=== PATIENT | male | born 1950 | race Caucasian/White ===

== ENCOUNTER 2017-06-05 06:49 | Day surgery (SDC) | payer BC ==
[2017-05-14 08:30] VITALS: BMI 37.0
[~2017-06-05] VITALS: Ht 180.3 cm; Wt 120.0 kg
[~2017-06-05 06:49] MED LIST: ASPI81TA28 PO; BNC40 PO; BTH25 PO; CHOL1000 PO; CHRO1CAP3 PO; CLA PO; CYAN100020 PO; CYM/30 PO; Dilaudid Pain Pump; ENBREL SQ; GLC/500 PO; LACTATED RINGER'S 1000ML 1,000 ML IV SCH; LRS10 PO; LVMI SQ; MAGN400T6 PO; METO25TA3 PO; OMEG12006 PO; OXYC15TA89 PO; OXYSR/20 PO; PROC10TA PO
[2017-06-05] MEDS ORDERED: FENTANYL CITRATE INJ 50 MCG/1 ML 2 ML VIAL ONE (06:51)
[2017-06-05] MEDS ORDERED: MIDAZOLAM HCL 1 MG/ML 2ML VIAL ONE (06:51)
[2017-06-05 07:11] VITALS: BP 148/83; PULSE 65; TEMP 36.9; O2SAT 94; Ht 180.3 cm; Wt 120.0 kg
[2017-06-05] MEDS ORDERED: LABETALOL HCL IV 5 MG/ML 20ML IV PRN (07:15)
[2017-06-05] MEDS ORDERED: FENTANYL CITRATE INJ 50 MCG/1 ML 2 ML VIAL IV PRN (07:15)
[2017-06-05] MEDS ORDERED: ATROPINE SULFATE 0.1 MG/ML 5ML SYR IV PRN (07:15)
[2017-06-05] MEDS ORDERED: ONDANSETRON INJ 2 MG/ML 2 ML VIAL IV PRN (07:15)
[2017-06-05] MEDS ORDERED: SODIUM CHLORIDE 0.9% 500ML 500 ML IV ONE (08:01)
--- NOTE | 2017-06-05 08:01 | Endo History and Physical ---
History & Physical Date of Service: Jun 05, 2017. Chief Complaint: abnormal pancreas on imaging Referring Physician: History of Present Illness abnormal pancreas on imaging Past Surgical History Hx Cardiac Surgery: Yes (CARDIAC CATH NO STENTS) Hx Abdominal Surgery: Yes (HERNIA REPAIR) Hx Cancer Surgery: No Hx Thoracic Surgery: No Hx Orthopedic: Yes (LEFT ANKLE REPAIR, B/L TKA, MULTIPLE NECK AND LUMBAR FUSION ) Hx Urinary Tract Surgery: No Social History Smoking Status: Former Smoker Hx Substance Use: No Hx Alcohol Use: No Allergies Coded Allergies: Adhesives (Verified Adverse Reaction, Severe, SKIN TEARS, 06/05/17) No Known Allergies (Verified , NONE, 06/05/17) Current Medications Reported Home Medications Medications Dose Route/Sig Max Daily Dose Days Date Category [Enbrel] 15 Mg SQ WK 05/14/17 Reported Baclofen 10 Mg Tab 10 Mg PO QID 05/14/17 Reported Aspirin Ec (Aspirin) 81 Mg Tab 81 Mg PO DAILY 05/14/17 Reported Bethanechol Chloride (Bethanechol Chl) 25 Mg Tab 25 Mg PO TID 05/14/17 Reported Cymbalta (Duloxetine HCl) 30 Mg Cap 1 Cap PO DAILY 30 05/14/17 Reported Levemir (Insulin Detemir) 100 Units/Ml Inj 18 Unit SQ QPM 05/14/17 Reported Glucophage (Metformin Hcl) 500 Mg Tab 1,000 Mg PO QAM 05/14/17 Reported Benicar (Olmesartan Medoxomil) 40 Mg Tab 40 Mg PO QAM 05/14/17 Reported Compazine (Prochlorperazine Maleate) 10 Mg Tab 10 Mg PO Q6H PRN 05/14/17 Reported Mag-Ox (Magnesium Oxide) 400 Mg Tab 400 Mg PO QAM 05/14/17 Reported [Cla] 1 Tab PO QAM 05/14/17 Reported Oxycontin (Oxycodone Hcl) 15 Mg Tab 15 Mg PO 5XDAILY 05/14/17 Reported Oxycontin (Oxycodone HCl) 20 Mg Tabcr 20 Mg PO QID 05/14/17 Reported Vitamin B12 (Cyanocobalamin) 1,000 Mcg Tab 1 Tab PO QAM 05/14/17 Reported [place] 3 ([place]-3 Fatty Acids) 1 Cap Cap 1 Cap PO QAM 05/14/17 Reported Vitamin D3 (Cholecalciferol) 1,000 Unit Tab 5,000 Unit PO DAILY 90 05/14/17 Reported [Dilaudid Pain Pump] 6 Mg DAILY 07/09/10 Reported Toprol-Xl (Metoprolol Succinate) 25 Mg Tabcr 25 Mg PO DAILY 10/03/08 Reported Vital Signs Weight (Kilograms): 120.00 Height (Feet): 5 Height (Inches): 11 Date Time Temp Pulse Resp B/P (MAP) Pulse Ox O2 Delivery O2 Flow Rate FiO2 06/05/17 07:11 36.9 65 20 148/83 (104) 94 Room Air Physical Exam Respiratory/Chest: Auscultation: breath sounds normal Cardiovascular: Heart Auscultation: RRR Abdomen: Bowel Sounds: normal Inspection & Palpation: soft, non-distended, no tenderness, guarding & rebound AAO x3 Nl s1s2 Lungs CTA Abd soft / obese/non tender - CCE Pt with discomfort in neck (hx spinal stenosis) Assessment and Plan EGD/EUS possible FNA Risk discussed with pt including bleeding infection perforation, 5% risk of pancreatitis and risk of bleeding pt/spouse agreeable to proceed
[2017-06-05] MEDS ORDERED: LIDOCAINE HCL 2% 2 ML VIAL (20MG/ML) ONE (09:05)
[2017-06-05] MEDS ORDERED: METOCLOPRAMIDE HCL INJ 5 MG/ML 2 ML VIAL ONE (09:06)
[2017-06-05] MEDS ORDERED: ONDANSETRON INJ 2 MG/ML 2 ML VIAL ONE (09:06)
[2017-06-05] MEDS ORDERED: ROCURONIUM BROMIDE 10 MG/ML 5 ML VIAL IV ONE (09:06)
[2017-06-05] MEDS ORDERED: PROPOFOL IV EMULSION 10 MG/ML 20 ML VIAL IV ONE (09:06)
[2017-06-05] MEDS ORDERED: CIPROFLOXACIN 400MG / 200ML D5W ONE (09:07)
--- NOTE | 2017-06-05 09:53 | Discharge Instructions ---
Endoscopy Patient Instructions Date / Procedure(s) Performed Jun 05, 2017. EGD, Other Allergy Information Coded Allergies: Adhesives (Verified Adverse Reaction, Severe, SKIN TEARS, 06/05/17) No Known Allergies (Verified , NONE, 06/05/17) Discharge Date / Findings Jun 05, 2017. panc lesion - FNA performed Normal EGD no varices Medication Instructions Restart Stopped Medication(s): Reported Home Medications Medications Dose Route/Sig Max Daily Dose Days Date Category [Enbrel] 15 Mg SQ WK 05/14/17 Reported Baclofen 10 Mg Tab 10 Mg PO QID 05/14/17 Reported Aspirin Ec (Aspirin) 81 Mg Tab 81 Mg PO DAILY 05/14/17 Reported Bethanechol Chloride (Bethanechol Chl) 25 Mg Tab 25 Mg PO TID 05/14/17 Reported Cymbalta (Duloxetine HCl) 30 Mg Cap 1 Cap PO DAILY 30 05/14/17 Reported Levemir (Insulin Detemir) 100 Units/Ml Inj 18 Unit SQ QPM 05/14/17 Reported Glucophage (Metformin Hcl) 500 Mg Tab 1,000 Mg PO QAM 05/14/17 Reported Benicar (Olmesartan Medoxomil) 40 Mg Tab 40 Mg PO QAM 05/14/17 Reported Compazine (Prochlorperazine Maleate) 10 Mg Tab 10 Mg PO Q6H PRN 05/14/17 Reported Mag-Ox (Magnesium Oxide) 400 Mg Tab 400 Mg PO QAM 05/14/17 Reported [Cla] 1 Tab PO QAM 05/14/17 Reported Oxycontin (Oxycodone Hcl) 15 Mg Tab 15 Mg PO 5XDAILY 05/14/17 Reported Oxycontin (Oxycodone HCl) 20 Mg Tabcr 20 Mg PO QID 05/14/17 Reported Vitamin B12 (Cyanocobalamin) 1,000 Mcg Tab 1 Tab PO QAM 05/14/17 Reported [place] 3 ([place]-3 Fatty Acids) 1 Cap Cap 1 Cap PO QAM 05/14/17 Reported Vitamin D3 (Cholecalciferol) 1,000 Unit Tab 5,000 Unit PO DAILY 90 05/14/17 Reported [Dilaudid Pain Pump] 6 Mg DAILY 07/09/10 Reported Toprol-Xl (Metoprolol Succinate) 25 Mg Tabcr 25 Mg PO DAILY 10/03/08 Reported Reported Home Medications Medications Dose Route/Sig Max Daily Dose Days Date Category [Enbrel] 15 Mg SQ WK 05/14/17 Reported Baclofen 10 Mg Tab 10 Mg PO QID 05/14/17 Reported Aspirin Ec (Aspirin) 81 Mg Tab 81 Mg PO DAILY 05/14/17 Reported Bethanechol Chloride (Bethanechol Chl) 25 Mg Tab 25 Mg PO TID 05/14/17 Reported Cymbalta (Duloxetine HCl) 30 Mg Cap 1 Cap PO DAILY 30 05/14/17 Reported Levemir (Insulin Detemir) 100 Units/Ml Inj 18 Unit SQ QPM 05/14/17 Reported Glucophage (Metformin Hcl) 500 Mg Tab 1,000 Mg PO QAM 05/14/17 Reported Benicar (Olmesartan Medoxomil) 40 Mg Tab 40 Mg PO QAM 05/14/17 Reported Compazine (Prochlorperazine Maleate) 10 Mg Tab 10 Mg PO Q6H PRN 05/14/17 Reported Mag-Ox (Magnesium Oxide) 400 Mg Tab 400 Mg PO QAM 05/14/17 Reported [Cla] 1 Tab PO QAM 05/14/17 Reported Oxycontin (Oxycodone Hcl) 15 Mg Tab 15 Mg PO 5XDAILY 05/14/17 Reported Oxycontin (Oxycodone HCl) 20 Mg Tabcr 20 Mg PO QID 05/14/17 Reported Vitamin B12 (Cyanocobalamin) 1,000 Mcg Tab 1 Tab PO QAM 05/14/17 Reported [place] 3 ([place]-3 Fatty Acids) 1 Cap Cap 1 Cap PO QAM 05/14/17 Reported Vitamin D3 (Cholecalciferol) 1,000 Unit Tab 5,000 Unit PO DAILY 90 05/14/17 Reported [Dilaudid Pain Pump] 6 Mg DAILY 07/09/10 Reported Toprol-Xl (Metoprolol Succinate) 25 Mg Tabcr 25 Mg PO DAILY 10/03/08 Reported Provider Instructions Activity Restrictions - No exercising or heavy lifting for 24 hours. - Do not drink alcohol the day of the procedure. - Do not drive a car or operate machinery until the day after the procedure. - Do not make any important decisions or sign important papers in 24 hours after the procedure. Following Day: - Return to full activity which may include returning to work/school. Diet Start your diet with liquids and light foods (jello, soup, juice, toast). Then eat your usual diet if not nauseated. Treatment For Common After Affects For mild abdominal pain, bloating, or excessive gas: - Rest - Eat lightly - Lie on right side Follow-Up Information Follow-up with as scheduled Anesthesia Information What You Should Know You have had a procedure that required some medicine to reduce anxiety and discomfort. This treatment is called moderate sedation. After receiving the treatment, you may be sleepy, but you will be able to breathe on your own. The effects of the treatment may last for several hours. Follow these instructions along with Activity/Diet recommendations noted above: * Do NOT do anything where dizziness or clumsiness would be dangerous. * Rest quietly at home today, then you can be up and about tomorrow. * Have a responsible person stay with you the rest of today. * You may have had an I.V. today. If so, you may take the dressing off later today. Recommendations Call your doctor if: * Trouble breathing * Continuous vomiting for more than 24 hours * Temperature above 101 degrees * Severe abdominal pain or bloating * Pain not relieved by pain medicine ordered * There is increased drainage or redness from any incision * A large amount of rectal bleeding greater than 2-3 tablespoons. (If you had a polyp/s removed or have hemorrhoids, a small amount of blood - from the rectum is to be expected.) * You have any unanswered questions or concerns. IN THE EVENT OF A SERIOUS EMERGENCY, GO TO THE NEAREST EMERGENCY ROOM Your discharge instructions were prepared by provider Michael Valdes. Patient Instructions Signature Page Daniel Leblanc Patient (or Guardian) Signature/Date: I have read and understand the instructions given to me by my caregivers. Caregiver/RN/Doctor Signature/Date: The above-named patient and/or guardian has received patient instructions on this date. + Original Patient Signature Page (only) stays with chart. Please make copy for patient.
--- NOTE | 2017-06-05 10:36 | Anesthesiology Progress Note ---
Anesthesia Post Op Note Date & Time Jun 05, 2017 at 10:36 Vital Signs Pain Intensity: 0 Vital Signs Past 12 Hours Date Time Temp Pulse Resp B/P (MAP) Pulse Ox O2 Delivery O2 Flow Rate FiO2 06/05/17 10:35 36.2 71 16 150/76 96 Room Air 06/05/17 10:25 64 16 147/83 96 Room Air 06/05/17 10:15 69 16 153/75 100 Oxymask 3 06/05/17 10:05 62 16 152/78 100 Oxymask 5 06/05/17 09:59 36.0 66 16 160/80 99 Oxymask 5 06/05/17 07:11 36.9 65 20 148/83 (104) 94 Room Air Notes Mental Status: alert / awake / arousable, participated in evaluation Pt Amnestic to Procedure: Yes Nausea / Vomiting: adequately controlled Pain: adequately controlled Airway Patency, RR, SpO2: stable & adequate BP & HR: stable & adequate Hydration State: stable & adequate Anesthetic Complications: no major complications apparent
--- NOTE | 2017-06-05 10:38 | GI REPORT ---
Procedure Date: 06/05/2017 8:19 AM Procedure: Upper GI endoscopy Indications: Portal hypertension rule out esophageal varices, Esophageal varices, Follow-up of esophageal varices Medicines: Propofol per Anesthesia Complications: No immediate complications. Estimated blood loss: None. Estimated Blood Loss: Estimated blood loss: none. Estimated blood loss: none. Procedure: Pre-Anesthesia Assessment: - Prior to the procedure, a History and Physical was performed, and patient medications and allergies were reviewed. The patient's tolerance of previous anesthesia was also reviewed. The risks and benefits of the procedure and the sedation options and risks were discussed with the patient. All questions were answered, and informed consent was obtained. Prior Anticoagulants: The patient has taken no previous anticoagulant or antiplatelet agents. ASA Grade Assessment: II - A patient with mild systemic disease. After reviewing the risks and benefits, the patient was deemed in satisfactory condition to undergo the procedure. After obtaining informed consent, the endoscope was passed under direct vision. Throughout the procedure, the patient's blood pressure, pulse, and oxygen saturations were monitored continuously. The Scope was introduced through the mouth, and advanced to the second part of duodenum. The upper GI endoscopy was accomplished without difficulty. The patient tolerated the procedure well. Findings: The examined esophagus was normal. The Z-line was regular and was found 45 cm from the incisors. The entire examined stomach was normal. The examined duodenum was normal. The cardia and gastric fundus were normal on retroflexion. Retained gastric contents are not identified on this exam. Impression: - Normal esophagus. - Z-line regular, 45 cm from the incisors. - Normal stomach. - Normal examined duodenum. - No specimens collected. Recommendation: - Perform an upper endoscopic ultrasound (UEUS) today. MD Michael Fuchs MD 06/05/2017 10:37:58 AM This report has been signed electronically. Note Initiated On: 06/05/2017 8:19 AM I attest to the content of the Intraoperative Record and orders documented therein, exceptions below
[2017-06-05 10:40] VITALS: BP 139/81; PULSE 65; TEMP 36.6; O2SAT 95
[2017-06-05 11:10] VITALS: BP 147/78; PULSE 66; TEMP 36.7; O2SAT 96
--- NOTE | 2017-06-05 13:33 | GI REPORT ---
Procedure Date: 06/05/2017 8:05 AM Procedure: Upper EUS Indications: Suspected mass in pancreas on CT scan Medicines: General Anesthesia, Cipro 400 mg IV Complications: No immediate complications. Estimated blood loss: Minimal. Estimated Blood Loss: Estimated blood loss was minimal. Procedure: Pre-Anesthesia Assessment: - Prior to the procedure, a History and Physical was performed, and patient medications and allergies were reviewed. The patient's tolerance of previous anesthesia was also reviewed. The risks and benefits of the procedure and the sedation options and risks were discussed with the patient. All questions were answered, and informed consent was obtained. Prior Anticoagulants: The patient has taken no previous anticoagulant or antiplatelet agents. ASA Grade Assessment: II - A patient with mild systemic disease. After reviewing the risks and benefits, the patient was deemed in satisfactory condition to undergo the procedure. After obtaining informed consent, the endoscope was passed under direct vision. Throughout the procedure, the patient's blood pressure, pulse, and oxygen saturations were monitored continuously. The Endosonoscope was introduced through the mouth, and advanced to the duodenum for ultrasound examination from the esophagus, stomach and duodenum. The Endosonoscope was introduced through the mouth, and advanced to the duodenal bulb. The upper EUS was accomplished without difficulty. The patient tolerated the procedure well. Findings: Endoscopic Finding : The examined esophagus was normal. The entire examined stomach was normal. The examined duodenum was normal. Endosonographic Finding : The esophagus, stomach and duodenum and adjacent structures were visualized endosonographically. There was no sign of significant endosonographic abnormality in the esophagus. No pathologic lymphadenopathy was identified. Endosonographic images of the stomach were unremarkable. No pathologic lymphadenopathy was identified. There was no sign of significant endosonographic abnormality in the duodenal bulb. No pathologic lymphadenopathy was identified. There was no sign of significant endosonographic abnormality in the common bile duct. The maximum diameter of the duct was 4 mm. No pathologic lymphadenopathy was identified. There was diffuse abnormal echotexture in the visualized portion of the liver. This was characterized by a heterogenous appearance. A round mass was identified in the pancreatic body. The mass was hypoechoic, hyperechoic and homogenous. The mass measured 7 mm in maximal cross-sectional diameter. The endosonographic borders were well-defined. An intact interface was seen between the mass and the adjacent structures suggesting a lack of invasion. The remainder of the pancreas was examined. The endosonographic appearance of parenchyma and the upstream pancreatic duct indicated a normal appearing duct, no ductal calcifications, no parenchymal calcifications and that the remainder of the pancreas was unremarkable. Fine needle aspiration for cytology was performed. Color Doppler imaging was utilized prior to needle puncture to confirm a lack of significant vascular structures within the needle path. Three passes were made with the 22 gauge needle using a transgastric approach. Some passes were made with a stylet. A welfare worker was present to evaluate the adequacy of the specimen. The cellularity of the specimen was adequate. Final cytology results are pending. No lymphadenopathy seen. Impression: - Normal esophagus. - Normal stomach. - Normal examined duodenum. - There was no sign of significant pathology in the esophagus. - Endosonographic images of the stomach were unremarkable. - There was no sign of significant pathology in the duodenal bulb. - There was no sign of significant pathology in the common bile duct. - There was diffuse abnormal echotexture in the visualized portion of the liver. This was characterized by a heterogenous appearance. - A mass was identified in the pancreatic body. Fine needle aspiration performed. Recommendation: - Discharge patient to home (ambulatory). - Advance diet as tolerated. - Await cytology results. - Return to liver clinic as previously scheduled. - Return to referring physician as previously scheduled. - The findings and recommendations were discussed with the patient's family. - Depending on pathology may need referral to Surg/Onc. MD Michael Fuchs MD 06/05/2017 1:33:00 PM This report has been signed electronically. Note Initiated On: 06/05/2017 8:05 AM I attest to the content of the Intraoperative Record and orders documented therein, exceptions below
== END 2017-06-05 11:15 | disposition home or self-care (01) ==
LOC: C.ACU 06:49
PROVIDERS: ATTEND Internal Medicine Gastroenterology
DX: K86.89 Other specified diseases of pancreas (principal); K76.6 Portal hypertension; I25.10 Atherosclerotic heart disease of native coronary artery without angina pectoris; Z96.653 Presence of artificial knee joint, bilateral; Z98.1 Arthrodesis status; Z87.891 Personal history of nicotine dependence; Z79.82 Long term (current) use of aspirin; M48.02 Spinal stenosis, cervical region